=== PATIENT | female | born 1990 | race Hispanic/Latino ===

== ENCOUNTER 2018-04-27 17:41 | Emergency (ER) | payer BC ==
[2018-04-27 17:55] VITALS: BP 158/102; PULSE 100; RESP 18; TEMP 98.3; O2SAT 98
--- NOTE | 2018-04-27 19:02 | ED PDOC ---
HPI: Trauma/Fall - HPI Time Seen by Provider: 04/27/18 18:01 Chief Complaint (Nursing): Trauma Chief Complaint (Provider): left neck and left sided head pain History Per: Patient History/Exam Limitations: no limitations Onset/Duration Of Symptoms: Days (x1 week) Associated Symptoms: LOC (questionable). denies: Dizziness Additional Complaint(s): Maryjo Nation is a 27 year old female, with no significant past medical history, who presents to the emergency department for evaluation of a left sided facial and neck pain s/p fall x1 week ago. Patient reports she woke up in the middle of the night and is unsure how she fell with a questionable LOC. Patient states she had pain in her jaw and left ear at the time of the incident but has since resolved except for the lingering left sided neck pain. Patient did not take any medications for pain. She also reports a headache, cough, cold and congestion the day after the fall but she took Dayquil with improvement of symptoms. Patient is eating and drinking normally. She denies any current vision changes, numbness or tingling, weakness, arm or leg pain, nausea, vomit, diarrhea, abdominal pain, chest pain, shortness of breath, dizziness or current headache. No further medical complaints. PMD: None provided. Past Medical History Reviewed: Historical Data, Nursing Documentation, Vital Signs Vital Signs: Last Vital Signs Temp 98.3 F 04/27/18 17:50 Pulse 100 H 04/27/18 17:50 Resp 18 04/27/18 17:50 BP 158/102 H 04/27/18 17:50 Pulse Ox 98 04/27/18 17:50 - Medical History PMH: No Chronic Diseases - Surgical History Surgical History: No Surg Hx - Family History Family History: States: Unknown Family Hx - Social History Current smoker - smoking cessation education provided: No Alcohol: Social Drugs: Cannabis - Immunization History Hx Tetanus Toxoid Vaccination: No Hx Influenza Vaccination: No Hx Pneumococcal Vaccination: No - Allergies Allergies/Adverse Reactions: Allergies Allergy/AdvReac Type Severity Reaction Status Date / Time No Known Allergies Allergy Verified 04/27/18 17:49 Review of Systems ROS Statement: Except As Marked, All Systems Reviewed And Found Negative Eyes: Negative for: Vision Change ENT: Positive for: Nose Congestion Cardiovascular: Negative for: Chest Pain Respiratory: Positive for: Cough. Negative for: Shortness of Breath Gastrointestinal: Negative for: Nausea, Vomiting, Abdominal Pain, Diarrhea Musculoskeletal: Positive for: Neck Pain (left sided). Negative for: Arm Pain, Leg Pain Neurological: Negative for: Weakness, Numbness (tingling), Headache, Dizziness Physical Exam - Reviewed Nursing Documentation Reviewed: Yes Vital Signs Reviewed: Yes - Physical Exam Appears: Positive for: No Acute Distress Head Exam: Positive for: ATRAUMATIC (mild left lateral tenderness to head area), NORMAL INSPECTION, NORMOCEPHALIC Skin: Positive for: Normal Color, Warm, Dry Eye Exam: Positive for: Normal appearance, EOMI, PERRL ENT: Positive for: Normal ENT Inspection, TM Is/Are (Intact. No blood or lacerations noted) Neck: Negative for: Normal (mild left lateral neck tenderness) Cardiovascular/Chest: Positive for: Regular Rate, Rhythm. Negative for: Murmur Respiratory: Positive for: Normal Breath Sounds. Negative for: Respiratory Distress Gastrointestinal/Abdominal: Positive for: Normal Exam, Soft. Negative for: Tenderness Back: Positive for: Normal Inspection. Negative for: L CVA Tenderness, R CVA Tenderness, Vertebral Tenderness Extremity: Positive for: Normal ROM (upper and lower extremities). 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 Negative for: Motor/Sensory Deficits (5/5 equal strength on all extremities), Aphasia, Facial Droop - ECG O2 Sat by Pulse Oximetry: 98 (RA) Pulse Ox Interpretation: Normal - Radiology X-Ray: Interpreted by Me, Viewed By Me X-Ray Interpretation: No Acute Disease - CT Scan/US ct Other Rad Studies (CT/US): Read By Radiologist Other Rad Interpretation: no acute - Progress ED Course And Treament: 2046: Stable. AAOx3. Pain free. Tolerated PO. Fu with pcp. Medical Decision Making Medical Decision Making: Time: 18:01 Initial Impression: neck pain s/p fall Initial Plan: --Head w/o contrast [CT] --Cervical spine complete [RAD] --Reevaluation Scribe Attestation: Documented by Vazquez Dillon, acting as a scribe for Ezio Krause MD. Provider Scribe Attestation: All medical record entries made by the Scribe were at my direction and personally dictated by me. I have reviewed the chart and agree that the record accurately reflects my personal performance of the history, physical exam, medical decision making, and the department course for this patient. I have also personally directed, reviewed, and agree with the discharge instructions and disposition. Disposition - Clinical Impression Clinical Impression: Head injury, HTN (hypertension) - Patient ED Disposition Is Patient to be Admitted: No Counseled Patient/Family Regarding: Studies Performed, Diagnosis, Need For Followup - Disposition Referrals: [facility] [Outside] - 04/28/18 Disposition: Routine/Home Disposition Time: 20:49 Condition: STABLE Additional Instructions: Return if not better in 3 days. Instructions: High Blood Pressure in Adults, Minor Head Injury (DC) Forms: [employer] [facility] (Danish), [facility] ED School/Work Excuse
--- NOTE | 2018-04-28 10:24 | RAD ---
Date of service: 04/27/2018 PROCEDURE: Cervical Spine Radiographs. HISTORY: Pain. COMPARISON: None available. FINDINGS: BONES: Straightening of the normal lordosis. No fracture. Dens Intact. DISC SPACES: Normal. SOFT TISSUES: Normal. No prevertebral soft tissue swelling. OTHER FINDINGS: None. IMPRESSION: Straightening of the normal lordosis be related to positioning/spasm. Otherwise, unremarkable cervical spine radiographs.
--- NOTE | 2018-04-28 10:29 | CT ---
Date of service: 04/27/2018 PROCEDURE: CT HEAD WITHOUT CONTRAST. HISTORY: headache COMPARISON: None available. TECHNIQUE: Axial computed tomography images were obtained through the head/brain without intravenous contrast. Radiation dose: Total exam DLP = 783.72 mGy-cm. This CT exam was performed using one or more of the following dose reduction techniques: Automated exposure control, adjustment of the mA and/or kV according to patient size, and/or use of iterative reconstruction technique. FINDINGS: HEMORRHAGE: No intracranial hemorrhage. BRAIN: No mass effect or edema. No atrophy or chronic microvascular ischemic changes. VENTRICLES: Unremarkable. No hydrocephalus. CALVARIUM: Unremarkable. PARANASAL SINUSES: Scattered opacification of the left ethmoid air cells. MASTOID AIR CELLS: Unremarkable as visualized. No inflammatory changes. OTHER FINDINGS: None. IMPRESSION: No acute intracranial pathology. Left ethmoid air cell sinus disease.
== END 2018-04-27 21:11 | disposition home or self-care (01) ==
LOC: H.ER 17:41
DX: S09.90XA Unspecified injury of head, initial encounter (principal); W19.XXXA Unspecified fall, initial encounter; Y92.89 Other specified places as the place of occurrence of the external cause; I10 Essential (primary) hypertension